=== PATIENT | male | born 1975 | race Caucasian/White ===

== ENCOUNTER 2017-07-09 14:53 | Emergency (ER) | payer SELFPAY ==
[2017-07-09 14:59] VITALS: RESP 18; TEMP 98.1; O2SAT 99
[2017-07-09] MEDS ORDERED: Sodium Chloride 0.9% 1,000 ML IV STA (15:19)
--- NOTE | 2017-07-09 15:23 | ED PDOC ---
HPI: Male Pain Time Seen by Provider: 07/09/17 15:07 Chief Complaint (Nursing): Male Genitourinary Chief Complaint (Provider): Back pain History Per: Patient History/Exam Limitations: no limitations Onset/Duration Of Symptoms: Days (yesterday) Current Symptoms Are (Timing): Still Present Additional Complaint(s): Pt. with left low back pain. Ongoing for since yesterday. Pain in testicles b/ l. Pain also goes to left thigh. No numbness, tingles, abd pain, dysuria, penile pain, nausea, vomit, chest pain. Urinating with no issues. No incontinence or constipation. Ambulating with no issues. Past Medical History Reviewed: Nursing Documentation, Vital Signs Vital Signs: Last Vital Signs Temp 98.1 F 07/09/17 14:57 Pulse 95 H 07/09/17 14:57 Resp 18 07/09/17 14:57 BP 132/81 07/09/17 14:57 Pulse Ox 99 07/09/17 14:57 - Medical History PMH: No Chronic Diseases - Surgical History Surgical History: No Surg Hx - Family History Family History: States: Unknown Family Hx - Social History Alcohol: None Drugs: Denies - Home Medications Home Medications: Ambulatory Orders Medication Instructions Recorded Ibuprofen [Motrin] 600 mg PO TID 7 Days tab 07/09/17 - Allergies Allergies/Adverse Reactions: Allergies Allergy/AdvReac Type Severity Reaction Status Date / Time No Known Allergies Allergy Verified 07/09/17 15:00 Review of Systems ROS Statement: Except As Marked, All Systems Reviewed And Found Negative Genitourinary Male: Positive for: Scrotal Pain Musculoskeletal: Positive for: Back Pain, Leg Pain Physical Exam - Reviewed Nursing Documentation Reviewed: Yes Vital Signs Reviewed: Yes - Physical Exam Appears: Positive for: Non-toxic, No Acute Distress Head Exam: Positive for: ATRAUMATIC, NORMAL INSPECTION, NORMOCEPHALIC Skin: Positive for: Normal Color, Warm, DRY Eye Exam: Positive for: EOMI, Normal appearance, PERRL ENT: Positive for: Normal ENT Inspection Neck: Positive for: Normal, Painless ROM Cardiovascular/Chest: Positive for: Regular Rate, Rhythm Respiratory: Positive for: CNT, Normal Breath Sounds Gastrointestinal/Abdominal: Positive for: Normal Exam, Bowel Sounds, Soft. Negative for: Tenderness Male Genital Exam: Positive for: scrotum tenderness (L), testicular tenderness ( L), other (cremasteric reflex intact). Negative for: scrotum tenderness (R), testicular tenderness (R) Back: Positive for: Normal Inspection. Negative for: L CVA Tenderness, R CVA Tenderness Extremity: Positive for: Normal ROM (straight leg pos at 60* on left). Negative for: Tenderness, Calf Tenderness Neurologic/Psych: Positive for: Alert, Oriented - Laboratory Results Result Diagrams: 07/09/17 15:53 07/09/17 15:53 Interpretation Of Abn Labs: no acute Urine dip results: Positive for: Blood. Negative for: Leukocyte Esterase, Nitrate - ECG O2 Sat by Pulse Oximetry: 99 Pulse Ox Interpretation: Normal - CT Scan/US ct Other Rad Studies (CT/US): Read By Radiologist Other Rad Interpretation: pulmonary nodule - Progress ED Course And Treament: 1757: Stable. AAOx3. Pain free. Tolerated PO. Ambulated with no issues. Aware of pulm nodule. Fu with clinic for further eval. Disposition - Clinical Impression Clinical Impression: Back pain, Varicocele, Pulmonary nodule - Patient ED Disposition Is Patient to be Admitted: No Counseled Patient/Family Regarding: Studies Performed, Diagnosis, Need For Followup, Rx Given - Disposition Referrals: [facility] [Outside] - 07/11/17 Disposition: Routine/Home Disposition Time: 17:53 Condition: STABLE Additional Instructions: You have a pulmonary nodue. Follow up with the clinic to repeat x-rays and get further evaluation. Return if not better in 3 days. Prescriptions: Ibuprofen [Motrin] 600 mg PO TID 7 Days tab Instructions: Hydrocele/Varicocele (DC), Pulmonary Nodule, Low Back Pain in Adults Forms: SEAT 4a (French) Print Language: [place]
[2017-07-09 16:09] LABS: BASO # 0.1 K/uL (0.0-0.2); BASO % 1.2 % (0.0-2.0); EOS # 0.4 K/uL (0.0-0.7); EOS % 5.1 % (0.0-4.0); HEMOGLOBIN 16.9 g/dL (12.0-18.0); LYMPH # 3.1 K/uL (1.0-4.3); LYMPH % 37.5 % (20.0-40.0); MEAN CELL VOLUME 87.8 fl (80.0-94.0); MEAN CORPUSCULAR HEMOGLOBIN 29.7 pg (27.0-31.0); MEAN CORPUSCULAR HGB CONC 33.8 g/dL (33.0-37.0); MEAN PLATELET VOLUME 8.2 fl (7.2-11.7); MONO # 0.8 K/uL (0.0-0.8); MONO % 9.8 % (0.0-10.0); NEUT # 3.9 K/uL (1.8-7.0); NEUT % 46.4 % (50.0-75.0); NRBC % 0.4 % (0.0-0.0); RBC 5.69 Mil/uL (4.40-5.90); RED CELL DISTRIBUTION WIDTH 14.2 % (11.5-14.5); WHITE BLOOD COUNT 8.3 K/uL (4.8-10.8)
[2017-07-09 16:11] LABS: ALB/GLOB RATIO 1.4 (1.0-2.1); ALBUMIN 4.4 g/dL (3.5-5.0); ALT/SGPT 36 U/L (21-72); AST/SGOT 34 U/L (17-59); BLOOD UREA NITROGEN 11 mg/dl (9-20); CALCIUM 9.5 mg/dL (8.4-10.2); GFR AFRICAN-AMERICAN > 60; GFR NON-AFRICAN AMERICAN > 60
--- NOTE | 2017-07-09 16:49 | US ---
HISTORY: testicular pain TECHNIQUE: Realtime sonography through the scrotum with color and doppler flow. COMPARISON: None Available. FINDINGS: RIGHT TESTICLE: Measures 5.3 x 2.9 x 2.2 cm. Normal echotexture and flow. RIGHT EPIDIDYMIS: Epididymal head measures 0.7 x 1.0 x 1.1 cm. Grossly unremarkable appearance with normal flow. LEFT TESTICLE: Measures 5.2 x 3.0 x 2.0 cm. Normal echotexture and flow. LEFT EPIDIDYMIS: Epididymal head measures 1.2 x 10.8 x 1.0 cm. 1.0 cm left epididymal head cyst is identified. HYDROCELE: None. VARICOCELE: Potential early varicocele at the left lateral hemiscrotum the local hyperemia from localized hyperemia from focal cellulitis is a possibility as well. OTHER FINDINGS: None. IMPRESSION: 1 cm left epididymal head cysts. No cystic or solid testicular mass. No evidence to suggest testicular torsion bilaterally. Unremarkable right epididymis. Potential early varicocele left lateral silvia scrotum though hyperemia from local cellulitis is a possibility here. Clinically correlate further.
--- NOTE | 2017-07-09 17:07 | CT ---
PROCEDURE: CT Abdomen and Pelvis without intravenous contrast HISTORY: R/O stone COMPARISON: None. TECHNIQUE: Helical CT of the abdomen and pelvis was performed without oral or intravenous contrast as per referring physician request. Contrast Dose: None Radiation dose: Total exam DLP = 1084.45 mGy-cm. This CT exam was performed using one or more of the following dose reduction techniques: Automated exposure control, adjustment of the mA and/or kV according to patient size, and/or use of iterative reconstruction technique. FINDINGS: LOWER THORAX: A tiny nodules appears noncalcified in the left lower lobe and image 3 series 5 measuring 2 mm. Lung bases are otherwise unremarkable bilaterally. LIVER: Unremarkable. No gross lesion or ductal dilatation. GALLBLADDER AND BILE DUCTS: Unremarkable. PANCREAS: Unremarkable. No gross lesion or ductal dilatation. SPLEEN: Unremarkable. ADRENALS: Unremarkable. No mass. KIDNEYS AND URETERS: No radiodense urolithiasis, obstructive uropathy or perinephric reaction is seen related to either kidney. VASCULATURE: Unremarkable. No aortic aneurysm. BOWEL: Unremarkable. No obstruction. No gross mural thickening. APPENDIX: Unremarkable. Normal appendix. PERITONEUM: Unremarkable. No free fluid. No free air. LYMPH NODES: Unremarkable. No enlarged lymph nodes. BLADDER: Subcutaneous fatty changes are suggested within the urinary bladder wall with the bladder not fully distended. No pericystic reaction is appreciate however consider possible inflammatory or infectious process, even on a chronic basis, affecting the urinary bladder. REPRODUCTIVE: Unremarkable. BONES: Nonaggressive sclerosis changes are seen in the medial right iliac bone. OTHER FINDINGS: None. IMPRESSION: 1. No radiodense urolithiasis, obstructive uropathy or perinephric reaction bilaterally. 2. Potential chronic inflammatory infectious process involving the urinary bladder. Clinically correlate further. 3. No bowel obstruction, measure edema, ascites or free intraperitoneal gas grossly evident. Evaluation outside of the context obstructive uropathy/urolithiasis is limited due lack of contrast agents in this exam. 4. 2 mm left lower lobe pulmonary nodule. Follow-up low-dose chest CT advised in 1 year, lung rads 2.
[2017-07-09 17:26] VITALS: BP 138/89; PULSE 82
== END 2017-07-09 18:15 | disposition home or self-care (01) ==
LOC: H.ER 14:53
DX: M54.9 Dorsalgia, unspecified (principal); I86.1 Scrotal varices; R91.8 Other nonspecific abnormal finding of lung field
CPT/HCPCS: 74176; 80053; 85025; 93975; 96374; 99284; J1885; J7040